=== PATIENT | male | born 1990 | race Two or more races ===

== ENCOUNTER 2019-03-05 20:57 | Emergency (ER) | payer OTHER ==
[~2019-03-05] VITALS: Ht 180.3 cm; Wt 77.0 kg
[2019-03-05] MEDS ORDERED: MORPHINE SULFATE 4 MG/ML, 1ML ONE (21:17)
[2019-03-05] MEDS ORDERED: ONDANSETRON 2MG/ML, 2ML ONE (21:18)
[2019-03-05] MEDS ORDERED: ONDANSETRON 2MG/ML, 2ML IVPush ONE (21:30)
[2019-03-05] MEDS ORDERED: MORPHINE SULFATE 4 MG/ML, 1ML IVPush PRN (21:30)
[2019-03-05 22:40] VITALS: BP 122/71
== END 2019-03-05 22:44 | disposition home or self-care (01) ==
LOC: ED 22:33
DX: S43.084A Other dislocation of right shoulder joint, initial encounter (principal); Z98.890 Other specified postprocedural states; X58.XXXA Exposure to other specified factors, initial encounter; Y93.89 Activity, other specified; Y92.89 Other specified places as the place of occurrence of the external cause; Y99.8 Other external cause status
CPT/HCPCS: 23650; 73030; 96374; 96375; 99284; J2270; J2405